=== PATIENT | male | born 1970 | race Caucasian/White ===

== ENCOUNTER → 2022-04-26 | Outpatient (REF) ==
--- NOTE | 2022-04-26 10:08 | Diagnostic Imaging Report ---
INDICATION: Elbow pain with lifting. EXAMINATION: Left elbow 04/26/2022 FINDINGS: 3 views of the elbow. There are no fractures or dislocations. The joint space is preserved. Soft tissues unremarkable with no joint effusion appreciated. IMPRESSION: 1. No acute osseous abnormality. Dictated by: Dictated on workstation # [id number]
== END | disposition home or self-care (01) ==
LOC: OCC 09:45
PROVIDERS: ATTEND Nurse Practitioner Family
DX: Z01.818 Encounter for other preprocedural examination (principal)
CPT/HCPCS: 73080